=== PATIENT | male | born 1965 | race American Indian/Alaskan Native ===

== ENCOUNTER 2017-06-13 20:46 | Emergency (ER) | payer SELFPAY ==
[2017-06-13] MEDS ORDERED: Potassium Chloride 10 mEq ER Tab PO STA (22:33)
[2017-06-13] MEDS ORDERED: Potassium Chloride 20 mEq ER Tab PO ONE (22:40)
--- NOTE | 2017-06-13 22:46 | C.PDOC ---
History Of Present Illness 51 year old male who presents to the ER with a complaint of lower leg edema. Patient states this usually occurs about twice a year; he works in a food truck standing up all day. Patient has a Hx of uncontrolled HTN, he states he gets Lasix for a few days that usually helps. Patient was give Rx for leg stockings but is noncompliant. Patient reports he drinks fluids aggressively for fear of dehydration while working in [place], [place] in the heat. Denies SOB, chest pain, nausea, or vomiting. Time Seen by Provider: 06/13/17 22:25 Chief Complaint (Nursing): Lower Extremity Problem/Injury History Per: Patient History/Exam Limitations: no limitations Onset/Duration Of Symptoms: Days Current Symptoms Are (Timing): Still Present Initiating Event: Other (Not known) Current Respiratory Medications: None Severity: None Associated Symptoms: denies: Fever, Chills, Chest Pain Past Medical History Reviewed: Historical Data, Nursing Documentation, Vital Signs Vital Signs: Last Vital Signs Temp 98.5 F 06/13/17 23:20 Pulse 91 H 06/13/17 23:20 Resp 16 06/13/17 23:20 BP 164/92 H 06/13/17 23:20 Pulse Ox 97 06/13/17 23:20 - Medical History PMH: Asthma Surgical History: No Surg Hx Family History: States: Unknown Family Hx - Social History Hx Alcohol Use: No Hx Substance Use: Yes - Immunization History Hx Tetanus Toxoid Vaccination: Yes Hx Influenza Vaccination: No Hx Pneumococcal Vaccination: Yes Review Of Systems Constitutional: Positive for: Other (Mild weight gain over last 3 years). Negative for: Fever, Chills Cardiovascular: Negative for: Chest Pain Respiratory: Negative for: Shortness of Breath Musculoskeletal: Positive for: Other (Lower extremity edema) Physical Exam - Physical Exam Appears: Non-toxic, No Acute Distress Skin: Warm, Dry, Other (Eczema diffusely throughout body) Head: Atraumatic, Normacephalic Oral Mucosa: Moist Throat: Normal, No Erythema, No Exudate Neck: Normal, No Supple Chest: Symmetrical, No Tenderness Cardiovascular: Rhythm Regular, No Murmur Respiratory: Normal Breath Sounds, No Rales, No Rhonchi, No Wheezing Gastrointestinal/Abdominal: Soft, No Tenderness Extremity: Normal ROM, Pedal Edema (+4 pitting, bilaterally, symmetrically), Other (Negative homens sign, no weeping) Neurological/Psych: Oriented x3, Normal Speech, Normal Cognition Gait: Steady ED Course And Treatment O2 Sat by Pulse Oximetry: 98 Progress Note: Lasix, zestril and potassium administered. Patient refuses all labs and radiology test. Medical Decision Making Medical Decision Making: very nice man, declines w/u now and just wants meds to get him through the leg edema h/o HTN by history no h/o CHF/CAD smoking 1/2 PPD occasional marijuana Forcing PO fluids for fear of dehydration in the [facility] no prior HTN meds Agrees to DONNIE/HCTZ combo No s/s of CHF now. Will give lasix and KCL PO x 4 more days to decrease leg edema. Albuterol puffer refill. symmetrical predictable low susp of DVT Disposition Doctor Will See Patient In The: Office Counseled Patient/Family Regarding: Studies Performed, Diagnosis - Disposition Referrals: [facility] [Outside] [facility] [Outside] Disposition: HOME/ ROUTINE Disposition Time: 22:46 Condition: GOOD Additional Instructions: Leg Edema: Lasix 20 mg (strong diuretic) each morning to help lower leg edema Only until leg edema is resolved. (Usually 2-3 days) Always take with Potassium Chloride supplement (KCL 20 MEQ) Do NOT "overdrink" your diuretics- do not FORCE water/fluids Wear Surgical "Teds" surgical stocking ABOVE THE KNEE to help minimize lower leg edema Hypertension: Continue Vasotec 40 mg daily (blood pressure medicine)- take every morning Continue Hydrochlorthiazide (HCTZ) 25 mg (mild diuretic) every morning DO NOT OVERDRINK your diuretics. Drink extra water only when thirsty. Low salt diet. Your leg edema will be a good way to check your fluid balance. DO NOT run out of these meds. Seek refills from local clinics Call our [facility] for help making appointments. Asthma: Always use the Albuterol Puffer with the Aerochamber Spacer- makes it more effective. Curb smoking as much as possible Prescriptions: Albuterol HFA [Ventolin HFA 90 mcg/actuation (8 g)] 2 puff IH Q4H PRN #2 puff PRN Reason: asthma Enalapril Maleate [Vasotec] 40 mg PO DAILY #30 tab Furosemide [Lasix] 20 mg PO DAILY #6 tab hydroCHLOROthiazide [Hydrodiuril] 25 mg PO DAILY #30 tab Potassium Chloride [K-Dur 20 mEq ER Tab] 20 meq PO DAILY #6 tab Spacer, Inhalation [Aerochamber] 1 inh IH QID #1 dev Instructions: Asthma (ED), How to Stop Smoking (ED), Leg Edema (ED), Hypertension (ED) Forms: [employer] [facility] (Danish) - Clinical Impression Clinical Impression: Asthma, Leg edema - Scribe Statement The provider has reviewed the documentation as recorded by the Scribedwin Goldberg All medical record entries made by the Scribe were at my direction and personally dictated by me. I have reviewed the chart and agree that the record accurately reflects my personal performance of the history, physical exam, medical decision making, and the department course for this patient. I have also personally directed, reviewed, and agree with the discharge instructions and disposition.
[2017-06-13 23:20] VITALS: BP 164/92; PULSE 91; RESP 16; TEMP 98.5
[2017-06-14 03:46] VITALS: O2SAT 98
== END 2017-06-13 23:20 | disposition home or self-care (01) ==
LOC: C.ER 20:46
DX: R60.0 Localized edema (principal); J45.909 Unspecified asthma, uncomplicated; I10 Essential (primary) hypertension; F17.210 Nicotine dependence, cigarettes, uncomplicated

== ENCOUNTER 2018-05-21 21:42 | Emergency (ER) | payer MEDICAID, OTHER ==
[2018-05-21] MEDS ORDERED: Albuterol-Ipratrop 3 mg / 0.5 (3 ml) UD ONE ×2 (21:57→22:19)
[2018-05-21] MEDS ORDERED: Albuterol-Ipratrop 3 mg / 0.5 (3 ml) UD INH STA ×3 (22:09)
--- NOTE | 2018-05-21 22:26 | C.PDOC ---
History Of Present Illness 52 y/o male with Hx of asthma presents to ED for complaints of exacerbating asthma. Patient reports asthma is easily triggered by the weather. Patient also states he is not taking medication at home because he can't afford it. Denies any other physical complaints. Time Seen by Provider: 05/21/18 21:59 Chief Complaint (Nursing): Respiratory Distress History Per: Patient History/Exam Limitations: no limitations Onset/Duration Of Symptoms: Hrs Current Symptoms Are (Timing): Still Present Current Respiratory Medications: See Home Med List Associated Symptoms: denies: Fever, Chills, Chest Pain Recent travel outside of the [place]: No Past Medical History Reviewed: Historical Data, Nursing Documentation, Vital Signs Vital Signs: Last Vital Signs Temp 97.6 F 05/22/18 00:09 Pulse 82 05/22/18 00:09 Resp 19 05/22/18 00:09 BP 162/94 H 05/22/18 00:09 Pulse Ox 96 05/22/18 00:09 - Medical History PMH: Asthma Surgical History: No Surg Hx Family History: States: Unknown Family Hx - Social History Hx Alcohol Use: No Hx Substance Use: Yes - Immunization History Hx Tetanus Toxoid Vaccination: Yes Hx Influenza Vaccination: No Hx Pneumococcal Vaccination: Yes Review Of Systems Except As Marked, All Systems Reviewed And Found Negative. Respiratory: Positive for: Other (Exacerbating asthma) Physical Exam - Physical Exam Appears: Well, Non-toxic, No Acute Distress Skin: Normal Color, Warm, Dry Head: Atraumatic, Normacephalic Eye(s): bilateral: Normal Inspection, PERRL, EOMI Oral Mucosa: Moist Neck: Supple Chest: Symmetrical, No Tenderness Cardiovascular: Rhythm Regular Respiratory: No Decreased Breath Sounds, No Rales, No Rhonchi, Wheezing ( Bilateral ) Gastrointestinal/Abdominal: Soft, No Tenderness Extremity: Normal ROM, No Deformity Extremity: Bilateral: Atraumatic, Normal Color And Temperature, Normal ROM Neurological/Psych: Oriented x3, Normal Speech (Speaking in full sentences ), Other (No focal deficits ) Gait: Steady ED Course And Treatment O2 Sat by Pulse Oximetry: 100 (RA) Pulse Ox Interpretation: Normal Medical Decision Making Medical Decision Making: Administered Albuterol Peak flow. Ordered CXR. pt observed several hours. wehezing improved. asking for dc. Disposition - Disposition Referrals: [facility] [Outside] [facility] [Outside] Disposition: HOME/ ROUTINE Disposition Time: 12:00 Condition: STABLE Additional Instructions: follow up with your doctor/clinic. return to er with worsenig symptoms or concerns. Prescriptions: Albuterol 0.083% [Albuterol 0.083% Inhal Nancy (2.5 mg/3 ml) UD] 2.5 mg IH Q6 PRN #1 neb PRN Reason: Wheezing Albuterol HFA [Ventolin HFA 90 mcg/actuation (8 g)] 1 puff IH Q6 PRN #1 puff PRN Reason: Wheezing Ipratropium [Atrovent] 1 puff IH QID PRN #1 puff PRN Reason: Wheezing levoFLOXacin [Levaquin] 750 mg PO DAILY #10 tab Prednisone 50 mg PO DAILY #5 tab Instructions: Asthma in Adults Forms: [facility] (Divehi) - Clinical Impression Clinical Impression: Exacerbation of asthma - Scribe Statement The provider has reviewed the documentation as recorded by the Scribedwin Laguerre All medical record entries made by the Scribedwin were at my direction and personally dictated by me. I have reviewed the chart and agree that the record accurately reflects my personal performance of the history, physical exam, medical decision making, and the department course for this patient. I have also personally directed, reviewed, and agree with the discharge instructions and disposition.
[2018-05-22 00:10] VITALS: BP 162/94; PULSE 82; RESP 19; TEMP 97.6
--- NOTE | 2018-05-22 12:07 | RAD ---
Date of service: 05/21/2018 HISTORY: asthma COMPARISON: No prior. TECHNIQUE: Chest PA and lateral FINDINGS: LUNGS: No active pulmonary disease. PLEURA: No significant pleural effusion identified. No pneumothorax apparent. CARDIOVASCULAR: Normal. OSSEOUS STRUCTURES: Degenerative changes. VISUALIZED UPPER ABDOMEN: Normal. OTHER FINDINGS: None. IMPRESSION: No active disease.
[2018-05-24 07:38] VITALS: O2SAT 100
== END 2018-05-22 00:10 | disposition home or self-care (01) ==
LOC: C.ER 21:42
DX: J45.901 Unspecified asthma with (acute) exacerbation (principal)